=== PATIENT | male | born 1985 | race Caucasian/White ===

== ENCOUNTER 2019-04-11 08:17 | Emergency (ER) | payer SELFPAY ==
--- OUTSIDE RECORDS SUMMARY | 2019-04-11 08:19 | XMS REPORT | Clinical Summary ---
:1985 Author Organization [facility] Address [address] [place] [address] Care Team Providers Name Role Phone Sharpgerman Primary Care Provider Allergies No Known Allergies Medications Not on file Active Problems Not on file Social History Tobacco Use Types Packs/Day Years Used Date Never Assessed Sex Assigned at Date Recorded Not on file Job Start Date Occupation Industry Not on file Not on file Not on file Travel History Travel Start Travel End No recent travel history available. Last Filed Vital Signs Not on file Plan of Treatment Not on file Results Not on fileafter 04/10/2018
[2019-04-11] MEDS ORDERED: IBUPROFEN 400 MG TAB ONE (08:37)
[2019-04-11] MEDS ORDERED: MEPERIDINE HCL 50 MG/ML ONE (08:37)
--- NOTE | 2019-04-11 08:42 | EDPHYS ---
Physician Documentation [facility] Name: Tony Crews Age: 33 yrs Sex: Male : 1985 Arrival Date: 04/11/2019 Time: 08:20 Bed 7 Private MD: ED Physician Sandro Peoples HPI: 04/11 08:33 This 33 yrs old Male presents to ER via Unassigned with complaints of Leg rn Pain. 08:34 The patient presents with an injury, pain. The complaints affect the left calf. Onset: rn The symptoms/episode began/occurred yesterday. Modifying factors: The symptoms are alleviated by nothing. the symptoms are aggravated by movement, weight bearing. Severity of symptoms: At their worst the symptoms were moderate, in the emergency department the symptoms are unchanged. The patient has not experienced similar symptoms in the past. Reports in mosh pit last night at concert with son, jumping a lot and got pushed down a hill, when climbing back up heard a pop and unable to walk without pain. Hurts to put weight of foot and can still plantar flex foot. . Historical: - Allergies: 08:33 No Known Allergies; iw - Home Meds: 08:33 None [Active]; iw - PMHx: 08:33 None; iw - PSHx: 08:33 LEFT ELBOW; iw - Immunization history:: Adult Immunizations. - Ebola Screening: : Patient negative for fever greater than or equal to 101.5 degrees Fahrenheit, and additional compatible Ebola Virus Disease symptoms Patient denies exposure to infectious person Patient denies travel to an Ebola-affected area in the 21 days before illness onset No symptoms or risks identified at this time. - Family history:: not pertinent. - Social history:: Smoking status: unknown. - Hospitalizations: : No recent hospitalization is reported. ROS: 08:34 Constitutional: Negative for fever, chills, and weight loss, Back: Negative for injury rn and pain, MS/Extremity: + left leg pain and injury Skin: Negative for injury, rash, and discoloration, Neuro: Negative for weakness, numbness, tingling Exam: 08:34 Constitutional: This is a well developed, well nourished patient who is awake, alert, rn appears in pain MS/ Extremity: Pulses equal, no cyanosis. Neurovascular intact. Able to actively plantar flex foot, no ecchymosis or tenderness along mid to distal achilles tendon. + tenderness and fullness mid to distal calf, no lacerations or open wounds. Vital Signs: 08:34 BP 151 / 100; Pulse 76; Resp 16; Temp 98.1(TE); Pulse Ox 100% on R/A; Weight 83.91 kg; ss Height 5 ft. 5 in. (165.10 cm); Pain 10/10; 08:34 Body Mass Index 30.79 (83.91 kg, 165.10 cm) ss MDM: 08:22 Patient medically screened. rn 08:34 Differential diagnosis: tear of muscle or tendon of lower leg. Data reviewed: vital rn signs, nurses notes, and as a result, I will discharge patient. Counseling: I had a detailed discussion with the patient and/or guardian regarding: the historical points, exam findings, and any diagnostic results supporting the discharge/admit diagnosis, the need for outpatient follow up, to return to the emergency department if symptoms worsen or persist or if there are any questions or concerns that arise at home. Special discussion: I discussed with the patient/guardian in detail that at this point there is no indication for admission to the hospital. It is understood, however, that if the symptoms persist or worsen the patient needs to return immediately for re-evaluation. Special discussion: Further emergent ED testing is not indicated at this point in time. I discussed with the patient/guardian in detail the need to arrange with the PCP or specialist further outpatient testing, MRI, Based on the history and exam findings, there is no indication for further emergent testing or inpatient evaluation. I discussed with the patient/guardian the need to see the orthopedic surgeon for further evaluation of the symptoms. ED course: Most likely given climbing/jumping/pop is calf tear/partial tear or tendon injury. Will splint to keep length and f/u with ortho for MRI and further care. . 04/11 08:47 Order name: Crutches; Complete Time: 09:03 rn 04/11 09:04 Order name: Splint - Posterior Leg; Complete Time: 09:04 dh3 Administered Medications: 08:40 Drug: Demerol 50 mg {Note: RASS:0.} Route: IM; Site: right deltoid; iw 09:13 Follow up: Response: No adverse reaction; Pain is decreased iw 08:40 Drug: Motrin 800 mg Route: PO; iw 09:13 Follow up: Response: No adverse reaction iw Disposition: 04/11/19 08:41 Discharged to Home. Impression: Possible tear of left calf or tendon, Spontaneous rupture of other tendons, left lower leg. - Condition is Stable. - Discharge Instructions: Partial (Incomplete) Achilles Tendon Rupture, Muscle Strain, Muscle Pain, Adult. - Prescriptions for Tylenol- Codeine #3 300-30 mg Oral Tablet - take 1 tablet by ORAL route every 6 hours As needed; 20 tablet. - Work release form, Medication Reconciliation Form, Thank You Letter, Antibiotic Education, Prescription Opioid Use form. - Follow up: Govind Pulido MD; When: As needed; Reason: Recheck today's complaints, Re-evaluation by your physician. - Problem is new. - Symptoms have improved. Signatures: Caity North RN RN Sandro Peoples MD MD rn Herrera, Deanna 3 Corrections: (The following items were deleted from the chart) 08:41 08:41 04/11/2019 08:41 Discharged to Home. 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 Condition is Stable. Forms are Medication Reconciliation Form, Thank You Letter, Antibiotic Education, Prescription Opioid Use. Follow up: Dr. Govind Pulido; When: As needed; Reason: Recheck today's complaints, Re-evaluation by your physician. Problem is new. Symptoms have improved. rn 09:12 08:41 04/11/2019 08:41 Discharged to Home. Impression: Possible tear of left calf or iw tendon; Spontaneous rupture of other tendons, left lower leg. Condition is Stable. Forms are Medication Reconciliation Form, Thank You Letter, Antibiotic Education, Prescription Opioid Use. Follow up: Dr. Govind Pulido; When: As needed; Reason: Recheck today's complaints, Re-evaluation by your physician. Problem is new. Symptoms have improved. rn
--- NOTE | 2019-04-11 08:42 | ER ---
Nurse's Notes [facility] Name: Tony Crews Age: 33 yrs Sex: Male : 1985 Arrival Date: 04/11/2019 Time: 08:20 Bed 7 Private MD: Diagnosis: Possible tear of left calf or tendon;Spontaneous rupture of other tendons, left lower leg Presentation: 04/11 08:33 Presenting complaint: Patient states: injured left leg while in [facility] over weekend. iw Transition of care: patient was not received from another setting of care. Onset of symptoms was April 10, 2019. Risk Assessment: Do you want to hurt yourself or someone else? Patient reports no desire to harm self or others. Initial Sepsis Screen: Does the patient meet any 2 criteria? No. Patient's initial sepsis screen is negative. Does the patient have a suspected source of infection? No. Patient's initial sepsis screen is negative. Care prior to arrival: None. 08:33 Method Of Arrival: Wheelchair iw 08:33 Acuity: DIANDRA 4 iw Historical: - Allergies: 08:33 No Known Allergies; iw - Home Meds: 08:33 None [Active]; iw - PMHx: 08:33 None; iw - PSHx: 08:33 LEFT ELBOW; iw - Immunization history:: Adult Immunizations. - Ebola Screening: : Patient negative for fever greater than or equal to 101.5 degrees Fahrenheit, and additional compatible Ebola Virus Disease symptoms Patient denies exposure to infectious person Patient denies travel to an Ebola-affected area in the 21 days before illness onset No symptoms or risks identified at this time. - Family history:: not pertinent. - Social history:: Smoking status: unknown. - Hospitalizations: : No recent hospitalization is reported. Screenin:34 Abuse screen: Denies threats or abuse. Denies injuries from another. Nutritional ss screening: No deficits noted. Tuberculosis screening: Never had TB. Fall Risk No fall in past 12 months (0 pts). No secondary diagnosis (0 pts). No IV (0 pts). Ambulatory Aid- Crutches/Cane/Walker (15 pts). Gait- Normal/Bed Rest/Wheelchair (0 pts) Mental Status- Oriented to own ability (0 pts). Assessment: 08:42 General: Appears in no apparent distress. Behavior is calm, cooperative. Pain: iw Complains of pain in left calf. Neuro: Level of Consciousness is awake, alert, obeys commands, Oriented to person, place, time, situation, Moves all extremities. Cardiovascular: Patient's skin is warm and dry. Respiratory: Respiratory effort is even, unlabored. Derm: Skin is intact, is healthy with good turgor. Musculoskeletal: Range of motion: intact in all extremities, Reports pain in left calf. Vital Signs: 08:34 BP 151 / 100; Pulse 76; Resp 16; Temp 98.1(TE); Pulse Ox 100% on R/A; Weight 83.91 kg; ss Height 5 ft. 5 in. (165.10 cm); Pain 10/10; 08:34 Body Mass Index 30.79 (83.91 kg, 165.10 cm) ss ED Course: 08:20 Patient arrived in ED. mr 08:21 Caity North RN is Primary Nurse. iw 08:22 Sandro Peoples MD is Attending Physician. rn 08:34 Triage completed. iw 08:34 Arm band placed on. iw 08:40 Govind Pulido MD is Referral Physician. rn 08:43 No provider procedures requiring assistance completed. Patient did not have IV access iw during this emergency room visit. 08:45 Patient has correct armband on for positive identification. iw 09:02 Orthoglass splint: Posterior short lleg splint applied on left leg. capillary refill < dh3 3 seconds, viewed by Dr. Peoples. Administered Medications: 08:40 Drug: Demerol 50 mg {Note: RASS:0.} Route: IM; Site: right deltoid; iw 09:13 Follow up: Response: No adverse reaction; Pain is decreased iw 08:40 Drug: Motrin 800 mg Route: PO; iw 09:13 Follow up: Response: No adverse reaction iw Outcome: 08:41 Discharge ordered by . rn 09:11 Discharged to home ambulatory, with crutches, with family. iw 09:11 Condition: good 09:11 Discharge instructions given to patient, family, Instructed on discharge instructions, follow up and referral plans. medication usage, Demonstrated understanding of instructions, follow-up care, medications, Prescriptions given X 1. 09:12 Patient left the ED. iw Signatures: Natalie Dawn mr Caity North RN RN iw Nieto, Roman, MD MD rn Smirch, Shelby, RN RN ss Elza Musa 3
[2019-04-11 15:15] VITALS: BP 151/100; TEMP 98.1; O2SAT 100
== END 2019-04-11 09:12 | disposition home or self-care (01) ==
LOC: ER 08:17
DX: M66.862 Spontaneous rupture of other tendons, left lower leg (principal); W17.81XA Fall down embankment (hill), initial encounter; Y93.89 Activity, other specified; Y92.89 Other specified places as the place of occurrence of the external cause
CPT/HCPCS: 96372; 99283; J2175

== ENCOUNTER 2023-01-26 22:19 | Emergency (ER) | payer SELFPAY ==
--- NOTE | 2023-01-27 02:11 | ER ---
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 Laceration noted to top of head. Bump noted left side of head. Coronavirus screen: Vaccine status: Patient reports receiving the 2nd dose of the covid vaccine. Ebola Screen: Patient negative for fever greater than or equal to 101.5 degrees Fahrenheit, and additional compatible Ebola Virus Disease symptoms. Mechanism of Injury: The problem was sustained at work. Initial Sepsis Screen: Does the patient meet any 2 criteria? No. Patient's initial sepsis screen is negative. Risk Assessment: Do you want to hurt yourself or someone else? Patient reports no desire to harm self or others. 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 Initial kd3 Sepsis Screen: Does the patient have a suspected source of infection? No. Patient's initial sepsis screen is negative. Onset of symptoms was January 26, 2023. Triage Assessment: 23:28 General: Appears in no apparent distress. Behavior is calm, cooperative. Pain: kd3 Complains of pain in right frontal area. Neuro: Level of Consciousness is awake, alert, obeys commands, Oriented to person, place, time, situation, Reports none . Historical: - Allergies: 23:28 No Known Allergies; kd3 - Immunization history:: Adult Immunizations up to date. - Social history:: Smoking status: unknown. Screenin:27 [facility] ED Fall Risk Assessment (Adult) History of falling in the last 3 months, ha1 including since admission No falls in past 3 months (0 pts) Confusion or Disorientation No (0 pts) Intoxicated or Sedated No (0 pts) Impaired Gait No (0 pts) Mobility Assist Device Used No (0 pt) Altered Elimination No (0 pt) Score/Fall Risk Level 0 - 2 = Low Risk Oriented to surroundings, Maintained a safe environment, Educated pt \T\ family on fall prevention, incl call for assistance when getting out of bed. Abuse screen: Denies threats or abuse. Denies injuries from another. Nutritional screening: No deficits noted. Tuberculosis screening: No symptoms or risk factors identified. Assessment: 23:27 General: Appears uncomfortable, Behavior is calm, cooperative. Pain: Complains of pain ha1 in head Pain does not radiate. Pain currently is 7 out of 10 on a pain scale. Neuro: Level of Consciousness is awake, alert, obeys commands, Oriented to person, place, time, situation. Cardiovascular: Patient's skin is warm and dry. Respiratory: Airway is patent Respiratory effort is even, unlabored, Respiratory pattern is regular, symmetrical. GI: No signs and/or symptoms were reported involving the gastrointestinal system. Derm: Skin is pink, warm \T\ dry. Musculoskeletal: Circulation, motion, and sensation intact. Range of motion: intact in all extremities. 01/27 00:30 Reassessment: Patient and/or family updated on plan of care and expected duration. Pain ha1 level reassessed. Patient is alert, oriented x 3, equal unlabored respirations, skin warm/dry/pink. 01:22 Reassessment: Patient and/or family updated on plan of care and expected duration. Pain ha1 level reassessed. Patient is alert, oriented x 3, equal unlabored respirations, skin warm/dry/pink. Vital Signs: 01/26 23:18 BP 134 / 90; Pulse 77; Resp 16; Temp 98.1; Pulse Ox 100% ; Weight 95.25 kg; Height 5 kd3 ft. 5 in. ; Pain 4/10; 01/27 00:30 BP 155 / 91; Pulse 71; Resp 18 S; Pulse Ox 97% on R/A; ha1 01:27 BP 150 / 90; Pulse 70; Resp 16 S; Pulse Ox 98% on R/A; ha1 01/26 23:18 Body Mass Index 34.95 (95.25 kg, 165.1 cm) kd3 01/26 23:18 Pain Scale: Adult kd3 [place] Coma Score: 01/26 23:18 Eye Response: spontaneous(4). Motor Response: obeys commands(6). Verbal Response: kd3 oriented(5). Total: 15. 23:18 Eye Response: spontaneous(4). Motor Response: obeys commands(6). Verbal Response: kd3 oriented(5). Total: 15. 01/27 00:00 Eye Response: spontaneous(4). Motor Response: obeys commands(6). Verbal Response: cp oriented(5). Total: 15. ED Course: 01/26 22:20 Patient arrived in ED. ja2 23:23 Triage completed. kd3 23:27 Patient has correct armband on for positive identification. Bed in low position. Call ha1 light in reach. Side rails up X 1. 23:28 Arm band placed on. kd3 23:32 Luis M Guerrero PA is PHCP. cp 23:32 Luis M Bryan MD is Attending Physician. cp 23:42 Sheron Godfrey, RN is Primary Nurse. ha1 01/27 01:10 CT Head C Spine In Process Unspecified. EDMS 02:19 No provider procedures requiring assistance completed. IV discontinued, intact, ha1 bleeding controlled, No redness/swelling at site. Pressure dressing applied. Administered Medications: No medications were administered Medication: 02:20 VIS not applicable for this client. ha1 Outcome: 02:11 Discharge ordered by . cp 02:19 Discharged to home ambulatory. ha1 02:19 Condition: stable 02:19 Discharge instructions given to patient, family, Instructed on discharge instructions, follow up and referral plans. Demonstrated understanding of instructions, follow-up care. 02:21 Patient left the ED. ha1 Signatures: Dispatcher [employer] EDSC Luis M Guerrero PA PA cp Alexander, Jessica 2 Rosa Mccarty RN RN 3 Sheron Godfrey RN RN ha1
--- NOTE | 2023-01-27 02:11 | EDPHYS ---
Physician Documentation [facility] Name: Tony Crews Age: 37 yrs Sex: Male : 1985 Arrival Date: 01/26/2023 Time: 22:19 Bed 17 Private MD: ED Physician Luis M Bryan HPI: 01/27 00:00 This 37 yrs old Male presents to ER via Ambulatory with complaints of Head Injury-Adult.cp 00:00 The patient or guardian reports a laceration, clean. The complaints affect the top of cp head. 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 Onset: The symptoms/episode began/occurred today. Associated signs and symptoms: Loss of consciousness: This patient did not experience any loss of consciousness. Pertinent negatives: neck pain, vomiting, weakness in extremities, generalized weakness. Historical: - Allergies: 01/26 23:28 No Known Allergies; kd3 - Immunization history:: Adult Immunizations up to date. - Social history:: Smoking status: unknown. ROS: 01/27 00:05 Constitutional: Negative for body aches, chills, fever, poor PO intake. cp 00:05 Eyes: Negative for injury, pain, redness, and discharge. cp 00:05 Neck: Negative for pain with movement, pain at rest, stiffness. 00:05 Cardiovascular: Negative for chest pain. 00:05 Respiratory: Negative for cough, shortness of breath, wheezing. 00:05 Abdomen/GI: Negative for abdominal pain, vomiting, diarrhea, constipation. 00:05 Back: Negative for pain at rest, pain with movement. 00:05 Skin: Positive for laceration(s), of the top of head. 00:05 Neuro: Positive for headache, Negative for altered mental status, loss of consciousness, numbness, syncope, weakness. 00:05 All other systems are negative. Exam: 00:10 Constitutional: The patient appears in no acute distress, alert, awake, non-toxic, well cp developed, well nourished. 00:10 Head/face: Noted is a laceration(s), that is deep, that is linear, of the top of head, cp swelling, that is mild, of the right side of the back of head, tenderness, that is moderate, of the top of head and right side of the back of head. 00:10 Eyes: Periorbital structures: appear normal, Pupils: equal, round, and reactive to light and accomodation, Extraocular movements: intact throughout, Conjunctiva: normal, no exudate, no injection, Lids and lashes: appear normal, bilaterally. 00:10 ENT: External ear(s): are unremarkable, Ear canal(s): are normal, clear, TM's: dullness, bilaterally, Nose: is normal, Mouth: is normal, Posterior pharynx: is normal, airway is patent, no erythema, no exudate. 00:10 Neck: C-spine: vertebral tenderness, is not appreciated, crepitus, is not appreciated, ROM/movement: pain, that is mild, with any movement, limited range of motion, is not appreciated. 00:10 Chest/axilla: Inspection: normal, Palpation: is normal, no crepitus, no tenderness. 00:10 Cardiovascular: Rate: normal, Rhythm: regular. 00:10 Respiratory: the patient does not display signs of respiratory distress, Respirations: normal, no use of accessory muscles, no retractions, labored breathing, is not present, Breath sounds: are clear throughout, no decreased breath sounds, no stridor, no wheezing. 00:10 Abdomen/GI: Exam negative for discomfort, distension, guarding, Inspection: abdomen appears normal. 00:10 Back: pain, is absent, ROM is normal. 00:10 Neuro: Orientation: to person, place \T\ time. Mentation: is normal, Motor: moves all fours, strength is normal, Sensation: is normal, Gait: is steady. Vital Signs: 01/26 23:18 BP 134 / 90; Pulse 77; Resp 16; Temp 98.1; Pulse Ox 100% ; Weight 95.25 kg; Height 5 kd3 ft. 5 in. ; Pain 11/10; 01/27 00:30 BP 155 / 91; Pulse 71; Resp 18 S; Pulse Ox 97% on R/A; ha1 01:27 BP 150 / 90; Pulse 70; Resp 16 S; Pulse Ox 98% on R/A; ha1 01/26 23:18 Body Mass Index 34.95 (95.25 kg, 165.1 cm) [facility] 01/26 23:18 Pain Scale: Adult kd3 [place] Coma Score: 06/26 23:18 Eye Response: spontaneous(4). Motor Response: obeys commands(6). Verbal Response: kd3 oriented(5). Total: 15. 23:18 Eye Response: spontaneous(4). Motor Response: obeys commands(6). Verbal Response: kd3 oriented(5). Total: 15. 01/27 00:00 Eye Response: spontaneous(4). Motor Response: obeys commands(6). Verbal Response: cp oriented(5). Total: 15. Laceration: 02:09 Wound Repair of 6cm ( 2.4in ) subcutaneous laceration to scalp. Linear shaped.. Distal cp neuro/vascular/tendon intact. Anesthesia: Wound infiltrated with 7 mls of 1% lidocaine w/ Epi. Wound prep: Simple cleansing by me, Wound irrigation by me. Skin closed with 7 1-0 [place] using staple gun. Dressed with Bacitracin, 4x4's. Patient tolerated well. MDM: 01/26 23:32 Patient medically screened. cp 01/27 02:10 Data reviewed: vital signs, nurses notes, radiologic studies, CT scan. cp 02:10 Differential diagnosis: Contusion of Hematoma on Laceration of Intracranial bleed- cp Concussion cerebral contusion. Counseling: I had a detailed discussion with the patient and/or guardian regarding: the historical points, exam findings, and any diagnostic results supporting the discharge/admit diagnosis, radiology results, to return to the emergency department if symptoms worsen or persist or if there are any questions or concerns that arise at home. Response to treatment: the patient's symptoms have markedly improved after treatment, and as a result, I will discharge patient. Special discussion: Based on the patient's history, exam and DX evaluation, there is no indication for emergent intervention or inpatient [place]. It is understood by the patient/guardian that if the SXs persist or worsen they need to return immediately for re-evaluation. 01/26 23:36 Order name: CT Head C Spine cp Administered Medications: No medications were administered Disposition Summary: 01/27/23 02:11 Discharge Ordered Location: Home cp Problem: new cp Symptoms: have improved cp Condition: Stable cp Diagnosis - Laceration without foreign body of scalp cp Followup: cp - With: Private Physician - When: 1 week - Reason: Staple/Suture removal Discharge Instructions: - Discharge Summary Sheet cp - Head Injury, Adult cp - Laceration Care, Adult cp - Sutures, [place], or Adhesive Wound Closure cp Forms: - Medication Reconciliation Form cp - Thank You Letter cp - Antibiotic Education cp - Prescription Opioid Use cp - [email or web address] cp - Work release form rv Signatures: Dispatcher [employer] EDMS Luis M Guerrero PA PA cp Doucette, Kyli RN RN kd3
[2023-01-27 02:34] VITALS: TEMP 98.1
[2023-01-27 02:38] VITALS: BP 150/90; O2SAT 98
--- NOTE | 2023-01-27 21:35 | RAD REPORT ---
EXAM DESCRIPTION: CT Head and Cervical Spine Without Intravenous Contrast CLINICAL HISTORY: The patient is 37 years old and is Male; head injury TECHNIQUE: Axial computed tomography images of the head/brain and cervical spine without intravenous contrast. Sagittal and coronal reformatted images were created and reviewed. This CT exam was pe rformed using one or more of the following dose reduction techniques: automated exposure control, a djustment of the mA and/or kV according to patient size, and/or use of iterative reconstruction techn ique. COMPARISON: No relevant prior studies available. FINDINGS: Brain: Unremarkable. No hemorrhage. No significant white matter disease. No edema. Ventricles: Unremarkable. No ventriculomegaly. Skull: No acute fracture. Sinuses: Unremarkable as visualized. No acute sinusitis. Mastoid air cells: Unremarkable as visualized. No mastoid effusion. Vertebrae: Unremarkable. No acute fracture. Normal alignment. Discs/spinal canal/neural foramina: No acute findings. No spinal canal stenosis. Soft tissues: Right scalp swelling. IMPRESSION: No acute intracranial abnormality. No acute findings in the cervical spine. Electronically signed by: Devin Maloney MD 01/27/2023 1:23 AM CDT Due to temporary technical issues with the PACS/Fluency reporting system, reports are being signed by the in house radiologists without review as a courtesy to insure prompt reporting. The interpreting radiologist is fully responsible for the content of the report.
== END 2023-01-27 02:21 | disposition home or self-care (01) ==
LOC: ER 22:19
PROC: 0HQ0XZZ Repair Scalp Skin, External Approach (ICD-10-PCS; principal; 2023-01-27)
DX: S01.01XA Laceration without foreign body of scalp, initial encounter (principal)
CPT/HCPCS: 70450; 72125

== ENCOUNTER 2023-02-02 09:54 | Emergency (ER) | payer SELFPAY ==
--- NOTE | 2023-02-02 10:04 | EDPHYS ---
Physician Documentation [facility] Name: Tony Crews Age: 37 yrs Sex: Male : 1985 Arrival Date: 02/02/2023 Time: 09:54 Bed IW2 Private MD: ED Physician Jerardo Giordano HPI: 02/02 10:02 This 37 yrs old Male presents to ER via Unassigned with complaints of Staple Removal. kb 10:02 The patient has lori on the top of head. Previous treatment: The patient was kb initially treated 7 day(s) ago, the care was rendered at [facility], Treatment type: The patient's original treatment included lori. Sutures/lori progress: The patient has no c/o's. The wound is well-healing with no redness, swelling, discharge, or dehiscence reported. The patient has not experienced similar symptoms in the past. The patient has not recently seen a physician. ROS: 10:02 Constitutional: Negative for fever, chills, and weight loss. kb 10:02 Skin: Positive for laceration(s), of the top of head, lori in place. 10:02 All other systems are negative. Exam: 10:02 Constitutional: This is a well developed, well nourished patient who is awake, alert, kb and in no acute distress. Head/Face: Normocephalic, atraumatic. ENT: Moist Mucous membranes Respiratory: Respirations even and unlabored. No increased work of breathing. Talking in full sentences MS/ Extremity: Pulses equal, no cyanosis. Neurovascular intact. Full, normal range of motion. Neuro: Awake and alert, GCS 15, oriented to person, place, time, and situation. Moves all extremities. Normal gait. 10:02 Skin: Wound recheck: Staple laceration closure: the wound is healing well, the edges are well approximated, no evidence of dehiscence, no drainage, no erythema, no swelling. Procedures: 10:01 Suture/Staple removal: Removed 7 lori, from top of head, site appears well healed, kb Patient tolerated well. MDM: 09:58 Patient medically screened. kb 10:01 Data reviewed: vital signs, nurses notes. Counseling: I had a detailed discussion with kb the patient and/or guardian regarding: the historical points, exam findings, and any diagnostic results supporting the discharge/admit diagnosis, the need for outpatient follow up, a family practitioner, to return to the emergency department if symptoms worsen or persist or if there are any questions or concerns that arise at home. Administered Medications: No medications were administered Disposition: 10:37 Co-signature as Attending Physician, Jerardo Giordano MD I reviewed the patient's care rt provided by the Advanced Practice Provider and agree with the diagnosis and treatment plan. Disposition Summary: 02/02/23 10:03 Discharge Ordered Location: Home kb Condition: Stable kb Diagnosis - Encounter for removal of sutures - lori kb Followup: kb - With: Emergency Department - When: As needed - Reason: Worsening of condition Followup: kb - With: Private Physician - When: 2 - 3 days - Reason: Recheck today's complaints, Continuance of care, Re-evaluation by your physician Discharge Instructions: - Discharge Summary Sheet kb - Suture Removal, Care After kb Forms: - Medication Reconciliation Form kb - Thank You Letter kb - Antibiotic Education kb - Prescription Opioid Use kb - [email or web address] kb Signatures: Claudette Mora, YAN-Megan HEREDIA-Jerardo Vizcarra MD MD rt
--- NOTE | 2023-02-02 10:10 | ER ---
Nurse's Notes [facility] Name: Tony Crews Age: 37 yrs Sex: Male : 1985 Arrival Date: 02/02/2023 Time: 09:54 Bed IW2 Private MD: Diagnosis: Encounter for removal of sutures-lori Presentation: 02/02 10:09 Chief complaint: Patient states: needs lori removed from top of head, placed 7 days iw ago here. Coronavirus screen: At this time, the client does not indicate any symptoms associated with coronavirus-19. Ebola Screen: Patient negative for fever greater than or equal to 101.5 degrees Fahrenheit, and additional compatible Ebola Virus Disease symptoms Patient denies exposure to infectious person. Patient denies travel to an Ebola-affected area in the 21 days before illness onset. No symptoms or risks identified at this time. Initial Sepsis Screen: Does the patient meet any 2 criteria? No. Patient's initial sepsis screen is negative. Does the patient have a suspected source of infection? No. Patient's initial sepsis screen is negative. Risk Assessment: Do you want to hurt yourself or someone else? Patient reports no desire to harm self or others. Onset of symptoms was February 02, 2023. 10:09 Method Of Arrival: Ambulatory iw 10:09 Acuity: DIANDRA 4 iw Triage Assessment: 10:09 General: Behavior is calm. iw Screenin:00 [facility] ED Fall Risk Assessment (Adult) History of falling in the last 3 months, iw including since admission Score/Fall Risk Level 0 - 2 = Low Risk. Abuse screen: Denies threats or abuse. Denies injuries from another. Nutritional screening: No deficits noted. Tuberculosis screening: No symptoms or risk factors identified. Assessment: 10:09 General: Appears in no apparent distress. iw ED Course: 09:57 Patient arrived in ED. mr 09:57 Claudette Mora FNP-C is PHCP. kb 09:57 Jerardo Giordano MD is Attending Physician. kb 10:08 Caity North, RN is Primary Nurse. iw 10:08 No provider procedures requiring assistance completed. Patient did not have IV access iw during this emergency room visit. 10:09 Triage completed. iw 10:09 Arm band placed on. iw Administered Medications: No medications were administered Outcome: 10:03 Discharge ordered by MD. kb 10:08 Discharged to home ambulatory. iw 10:08 Condition: good 10:08 Discharge instructions given to patient. 10:08 No charge visit due to suture removal. 10:09 Patient left the ED. iw Signatures: Claudette Mora FNP-C FNP-Natalie Valentin mr Caity North, RN RN iw
== END 2023-02-02 10:09 | disposition home or self-care (01) ==
LOC: ER 09:54
DX: Z48.02 Encounter for removal of sutures (principal)